=== PATIENT | female | born 1945 | race Caucasian/White ===

== ENCOUNTER 2019-05-15 12:45 | Day surgery (SDC) | payer MEDICARE ==
[~2019-05-15] VITALS: Ht 170.2 cm; Wt 55.7 kg
[~2019-05-15 12:45] MED LIST: ALBU90OI61 INH; BREO ELLIPTA 11 EACH INH; CALCA400CH PO; LEVO-T100 MCG PO; Super Calcium600 MG PO; VITAMIN D3400 UNIT PO; Vitamin D400 UNI1 PO
== END 2019-05-15 14:30 | disposition home or self-care (01) ==
LOC: ORSCSDS 12:45
PROVIDERS: Surgery
PROC: 0DJD8ZZ Inspection of Lower Intestinal Tract, Via Natural or Artificial Opening Endoscopic (ICD-10-PCS; principal; 2019-05-15 14:00)
DX: Z12.11 Encounter for screening for malignant neoplasm of colon (principal); Z85.048 Personal history of other malignant neoplasm of rectum, rectosigmoid junction, and anus; J44.9 Chronic obstructive pulmonary disease, unspecified; E03.9 Hypothyroidism, unspecified; Z79.899 Other long term (current) drug therapy
CPT/HCPCS: J2704; J7120

== ENCOUNTER 2021-06-11 08:22 | Day surgery (SDC) | payer MEDICARE ==
[~2021-06-11] VITALS: Ht 170.2 cm; Wt 58.6 kg
--- NOTE | 2021-06-11 09:21 | NUR ---
Ambulatory in Day Surgery History, Chart, Medications and Allergies reviewed before start of procedure. Lungs clear T/O to Auscultation. Patient confirms NPO status and agrees with scheduled surgery. Pre-Op teaching done. Pt verbalizes understanding. Patient States Post-Procedure ride home has been arranged.
--- NOTE | 2021-06-11 09:40 | NUR ---
06/11/21 0940 Winnie Merritt History, Chart, Medications and Allergies reviewed before start of procedure. Patient confirms NPO status and agrees with scheduled surgery. 3-LEAD EKG REVIEWED WITH PHYSICIAN PRIOR TO START OF PROCEDURE. MONITOR INTACT WITH CONTINUOUS PULSE OXIMETRY AND INTERMITTENT BP. PATIENT DETERMINED TO BE ASA APPROPRIATE FOR PROPOFOL SEDATION PRIOR TO START OF PROCEDURE BY DR. EUCEDA
--- NOTE | 2021-06-11 10:53 | NUR ---
PT DENIES NAUSEA OR PAIN p PROCEDURE. IV DC'D, CATH INTACT AND PRESSURE DRESSING APPLIED. GIVEN DC INSTRUCTIONS. NO QUESTIONS. DRESSES SELF s DIFFICULTY. OTD IN NAD VIA WC, ESCORTED BY MICHAEL DISCHARGE VOLUNTEER.
== END 2021-06-11 22:49 | disposition home or self-care (01) ==
LOC: ORSCMMR 08:22 → ORD 11:30 → ORSCMMR 22:49
PROVIDERS: Surgery
PROC: 0DBH8ZX Excision of Cecum, Via Natural or Artificial Opening Endoscopic, Diagnostic (ICD-10-PCS; principal; 2021-06-11 09:45)
PROC: 0DBL8ZX Excision of Transverse Colon, Via Natural or Artificial Opening Endoscopic, Diagnostic (ICD-10-PCS; principal; 2021-06-11 09:45)
DX: Z12.11 Encounter for screening for malignant neoplasm of colon (principal); Z85.048 Personal history of other malignant neoplasm of rectum, rectosigmoid junction, and anus; D12.3 Benign neoplasm of transverse colon; D12.0 Benign neoplasm of cecum; J44.9 Chronic obstructive pulmonary disease, unspecified; E03.9 Hypothyroidism, unspecified; E55.9 Vitamin D deficiency, unspecified; Z79.899 Other long term (current) drug therapy
CPT/HCPCS: 88305; J0461; J2250; J2704; J3010; J7120

== ENCOUNTER 2023-03-09 08:06 | Day surgery (SDC) | payer MEDICARE ==
[~2023-03-09] VITALS: Ht 170.2 cm; Wt 57.4 kg
--- NOTE | 2023-03-09 09:09 | NUR ---
03/09/23 0909 Betzaida Gavin IN AT 0856 ALEJANDRINA IN AT 0837
[2023-03-09 09:56] VITALS: BP 133/70
--- NOTE | 2023-03-09 09:56 | NUR ---
03/09/23 0956 Gayatri Rayo IV REMOVED, CANNULA INTACT. PT BONNIE WELL. UP IN CHAIR, PT DENIES NAUSEA AND PAIN
== END 2023-03-09 10:03 | disposition home or self-care (01) ==
LOC: ORSCSDS 08:06
PROVIDERS: Student in an Organized Health Care Education/Training Program
PROC: 08RJ3JZ Replacement of Right Lens with Synthetic Substitute, Percutaneous Approach (ICD-10-PCS; principal; 2023-03-09 09:30)
DX: H25.13 Age-related nuclear cataract, bilateral (principal); H40.003 Preglaucoma, unspecified, bilateral; J44.9 Chronic obstructive pulmonary disease, unspecified; E03.9 Hypothyroidism, unspecified; Z87.891 Personal history of nicotine dependence; Z79.899 Other long term (current) drug therapy
CPT/HCPCS: J2250; J3010; J7040; V2632

== ENCOUNTER 2023-03-23 07:54 | Day surgery (SDC) | payer MEDICARE ==
[~2023-03-23] VITALS: Ht 170.2 cm; Wt 57.8 kg
--- NOTE | 2023-03-23 08:40 | NUR ---
03/23/23 0840 Maria L Garcia TETRACAINE TO LEFT EYE AT 0840 PLEDGET TO LEFT EYE AT 0842 BY [email or web address]
[2023-03-23 09:53] VITALS: BP 132/73
--- NOTE | 2023-03-23 10:01 | NUR ---
03/23/23 1001 CURT CRUZ PT DECLINES FOOD OR DRINK. IV REMOVED, BONNIE WELL, WNL, CANNULA INTACT
== END 2023-03-23 10:06 | disposition home or self-care (01) ==
LOC: ORSCSDS 07:54
PROVIDERS: Student in an Organized Health Care Education/Training Program
PROC: 08RK3JZ Replacement of Left Lens with Synthetic Substitute, Percutaneous Approach (ICD-10-PCS; principal; 2023-03-23 09:30)
DX: H25.12 Age-related nuclear cataract, left eye (principal); Z96.1 Presence of intraocular lens; J44.9 Chronic obstructive pulmonary disease, unspecified; Z87.891 Personal history of nicotine dependence; Z79.899 Other long term (current) drug therapy
CPT/HCPCS: 82947; J2250; J7040; V2632

== ENCOUNTER → 2023-07-19 | Outpatient (CLI) | payer MEDICARE ==
[2023-07-19 18:22] LABS: Source, Urine Voided
[2023-07-19 18:42] LABS: Appearance, Urine Hazy (Clear); Bilirubin, Urine Neg (Neg); Blood, Urine 5+ (Neg); Color, Urine Amber (P-Yellow); Glucose Qualitative, Urine Neg (Neg); Ketones, Urine Neg (Neg); Leukocyte Esterase, Urine 3+ (Neg); Nitrite, Urine Pos (Neg); Protein, Urine 2+ (Neg); Specific Gravity, Urine 1.015 (1.003-1.022); Urobilinogen, Urine NORM (Normal)
[2023-07-19 19:29] LABS: Red Blood Cells, Urine TNTC /hpf (0-2); White Blood Cells, Urine TNTC /hpf (0-5)
[2023-07-19 19:30] LABS: Bacteria Many /hpf; Squamous Epithelial Cells Rare /hpf (Few); Triple Phosphate Crystals Few /hpf
== END | disposition home or self-care (01) ==
LOC: LAB 17:25 → LAB SHORT 17:25
PROVIDERS: Family Medicine
DX: R39.15 Urgency of urination (principal); R82.998 Other abnormal findings in urine
CPT/HCPCS: 81001; 87086